=== PATIENT | male | born 1970 | race Caucasian/White ===

== ENCOUNTER 2017-04-29 08:28 | Observation (INO) | payer BC, OTHER ==
--- NOTE | 2017-04-29 08:44 | EDM.PDOC ---
ED HPI GENERAL MEDICAL PROBLEM - General Stated Complaint: LT SHOULDER Time Seen by Provider: 04/29/17 08:41 - History of Present Illness INITIAL COMMENTS - FREE TEXT/NARRATIVE: HISTORY AND PHYSICAL: History of present illness: Patient's 46-year-old white male presents with a concern of chest pain he notices when he woke from sleep he describes it as a dull midsternal chest pain with radiation of his left arm he denies associated palpitations shortness of breath nausea vomiting or diaphoresis he denies history of known coronary artery disease he denies tobacco or drugs Review of systems: As per history of present illness and below otherwise all systems reviewed and negative. Past medical history: As per history of present illness and as reviewed below otherwise noncontributory. Surgical history: As per history of present illness and as reviewed below otherwise noncontributory. Social history: No reported history of drug or alcohol abuse. Family history: As per history of present illness and as reviewed below otherwise noncontributory. Physical exam: HEENT: Atraumatic, normocephalic, pupils reactive, negative for conjunctival pallor or scleral icterus, mucous membranes moist, throat clear, neck supple, nontender, trachea midline. Lungs: Clear to auscultation, breath sounds equal bilaterally, chest nontender. Heart: S1S2, regular, negative for clicks, rubs, or JVD. Abdomen: Soft, nondistended, nontender. Negative for masses or hepatosplenomegaly. Negative for costovertebral tenderness. Pelvis: Stable nontender. Genitourinary: Deferred. Rectal: Deferred. Extremities: Atraumatic, negative for cords or calf pain. Neurovascular unremarkable. Neuro: Awake, alert, anxious, oriented. Cranial nerves II through XII unremarkable. Cerebellum unremarkable. Motor and sensory unremarkable throughout. Exam nonfocal. Diagnostics: CBC CMP troponin PT/INR chest x-ray EKG Therapeutics: IV O2 monitor aspirin 324 mg Impression: #1 chest pain Definitive disposition and diagnosis as appropriate pending reevaluation and review of above. - Related Data Allergies Allergy/AdvReac Type Severity Reaction Status Date / Time meperidine [From Demerol] Allergy Itching Verified 04/29/17 08:57 meperidine HCl [From Demerol] Allergy Cannot Verified 04/29/17 08:57 Remember Home Meds: Home Meds . [No Known Home Meds] 04/29/17 [History] Past Medical History Genitourinary History: Reports: Renal Calculus - Past Surgical History Musculoskeletal Surgical History: Reports: Shoulder Surgery Social & Family History - Family History Family Medical History: Noncontributory - Tobacco Use Smoking Status *Q: Never Smoker - Caffeine Use Caffeine Use: Reports: None - Recreational Drug Use Recreational Drug Use: No ED ROS GENERAL - Review of Systems Review Of Systems: ROS reveals no pertinent complaints other than HPI. ED EXAM, GENERAL - Physical Exam Exam: See Below (See dictation) Course - Vital Signs Last Recorded V/S: Last Vital Signs Temp 37.0 C 04/29/17 08:55 Pulse 62 04/29/17 08:55 Resp 20 04/29/17 08:55 BP 156/100 H 04/29/17 08:55 Pulse Ox 98 04/29/17 08:55 - Orders/Labs/Meds Orders: Active Orders 24 hr Category Date Time Status EKG Documentation Completion [RC] STAT Care 04/29/17 08:57 Active Chest 1V Frontal [CR] Stat Exams 04/29/17 08:57 Ordered D-DIMER QUANTITATIVE [COAG] Stat Lab 04/29/17 08:53 Received INR,PT,PROTHROMBIN TIME [COAG] Stat Lab 04/29/17 08:53 Received UA W/MICROSCOPIC [URIN] Stat Lab 04/29/17 08:57 Uncollected Sodium Chloride 0.9% [Saline Flush] Med 04/29/17 08:57 Active 10 ml FLUSH ASDIRECTED PRN Sodium Chloride 0.9% [Saline Flush] Med 04/29/17 08:57 Active 2.5 ml FLUSH ASDIRECTED PRN Saline Lock Insert [OM.PC] Stat Oth 04/29/17 08:57 Ordered Medication Orders Sodium Chloride (Saline Flush) 10 ml FLUSH ASDIRECTED PRN PRN Reason: Keep Vein Open Last Admin: 04/29/17 09:06 Dose: 10 ml Sodium Chloride (Saline Flush) 2.5 ml FLUSH ASDIRECTED PRN PRN Reason: Keep Vein Open Last Admin: 04/29/17 09:06 Dose: 2.5 ml Labs: Laboratory Tests 04/29/17 04/29/17 Range/Units 08:53 08:53 WBC 5.12 (4.0-11.0) K/uL RBC 5.16 (4.50-5.90) M/uL Hgb 16.6 (13.0-17.0) g/dL Hct 46.6 (38.0-50.0) % MCV 90.3 (80.0-98.0) fL MCH 32.2 H (27.0-32.0) pg MCHC 35.6 (31.0-37.0) g/dL RDW Std Deviation 42.5 (28.0-62.0) fl RDW Coeff of Hao 13 (11.0-15.0) % Plt Count 188 (150-400) K/uL MPV 10.70 (7.40-12.00) fL Neut % (Auto) 55.6 (48.0-80.0) % Lymph % (Auto) 30.9 (16.0-40.0) % [place] % (Auto) 10.0 (0.0-15.0) % Eos % (Auto) 2.9 (0.0-7.0) % Baso % (Auto) 0.6 (0.0-1.5) % Neut # (Auto) 2.9 (1.4-5.7) K/uL Lymph # (Auto) 1.6 (0.6-2.4) K/uL [place] # (Auto) 0.5 (0.0-0.8) K/uL Eos # (Auto) 0.2 (0.0-0.7) K/uL Baso # (Auto) 0.0 (0.0-0.1) K/uL Nucleated RBC % 0.0 /100WBC Nucleated RBCs # 0 K/uL Sodium 140 (136-146) mmol/L Potassium 4.3 (3.5-5.1) mmol/L Chloride 105 (98-110) mmol/L Carbon Dioxide 26 (21-31) mmol/L BUN 16 (6.0-23.0) mg/dL Creatinine 1.0 (0.6-1.5) mg/dL Est Cr Clr Drug Dosing 97.26 mL/min Estimated GFR (MDRD) > 60.0 ml/min Glucose 107 (60-110) mg/dL Calcium 9.7 (8.8-10.8) mg/dL Total Bilirubin 0.6 (0.1-1.5) mg/dL AST 37 (5-40) IU/L ALT 52 (8-54) IU/L Alkaline Phosphatase 69 (40-150) Troponin I < 0.10 (0.0-0.29) NG/ML Total Protein 7.8 (6.0-8.0) g/dL Albumin 4.2 (3.5-5.0) g/dL Globulin 3.6 H (2.0-3.5) g/dL Albumin/Globulin Ratio 1.2 L (1.3-2.8) Amylase 45 (10-90) U/L Lipase 21 (7-80) U/L Meds: Medications Generic Name Dose Route Start Last Admin Trade Name Freq PRN Reason Stop Dose Admin Sodium Chloride 10 ml 04/29/17 08:57 04/29/17 09:06 Saline Flush FLUSH 10 ml ASDIRECTED PRN Administration Keep Vein Open Sodium Chloride 2.5 ml 04/29/17 08:57 04/29/17 09:06 Saline Flush FLUSH 2.5 ml ASDIRECTED PRN Administration Keep Vein Open Discontinued Medications Generic Name Dose Route Start Last Admin Trade Name Freq PRN Reason Stop Dose Admin Aspirin 324 mg 04/29/17 08:57 04/29/17 09:06 Aspirin PO 04/29/17 08:58 324 mg ONETIME ONE Administration Departure - Departure Time of Disposition: 09:36 Disposition: Refer to Observation Condition: Good Clinical Impression: Chest pain - Discharge Information Referrals: PCP,None [Primary Care Provider] - - My Orders Last 24 Hours: My Active Orders 04/29/17 08:53 D-DIMER QUANTITATIVE [COAG] Stat INR,PT,PROTHROMBIN TIME [COAG] Stat 04/29/17 08:57 EKG Documentation Completion [RC] STAT Chest 1V Frontal [CR] Stat UA W/MICROSCOPIC [URIN] Stat Sodium Chloride 0.9% [Saline Flush] 10 ml FLUSH ASDIRECTED PRN Sodium Chloride 0.9% [Saline Flush] 2.5 ml FLUSH ASDIRECTED PRN Saline Lock Insert [OM.PC] Stat - Assessment/Plan Last 24 Hours: My Active Orders 04/29/17 08:53 D-DIMER QUANTITATIVE [COAG] Stat INR,PT,PROTHROMBIN TIME [COAG] Stat 04/29/17 08:57 EKG Documentation Completion [RC] STAT Chest 1V Frontal [CR] Stat UA W/MICROSCOPIC [URIN] Stat Sodium Chloride 0.9% [Saline Flush] 10 ml FLUSH ASDIRECTED PRN Sodium Chloride 0.9% [Saline Flush] 2.5 ml FLUSH ASDIRECTED PRN Saline Lock Insert [OM.PC] Stat
[2017-04-29] MEDS ORDERED: Sodium Chloride 0.9% 2.5 ML Syringe FLUSH PRN (08:57)
[2017-04-29] MEDS ORDERED: Aspirin 81 MG Tab.Chew PO ONE (08:57)
[2017-04-29] MEDS ORDERED: Sodium Chloride 0.9% 10 ML Syringe FLUSH PRN (08:57)
[2017-04-29 09:22] LABS: CHLORIDE,CL 105 mmol/L (98-110); SODIUM,NA 140 mmol/L (136-146)
[2017-04-29] MEDS ORDERED: Ondansetron 4 MG Tab.DIS PO PRN (11:49)
[2017-04-29] MEDS ORDERED: Acetaminophen 325 MG Tab PO PRN (11:49)
[2017-04-29] MEDS ORDERED: Enoxaparin 40 MG/0.4 ML Syringe SUBCUT SCH (12:00)
--- NOTE | 2017-04-29 12:02 | PCM.HP ---
H&P History of Present Illness - General Date of Service: 04/29/17 Admit Problem/Dx: Admission Diagnosis/Problem Admission Diagnosis/Problem Chest pain Source of Information: Patient History Limitations: Reports: No Limitations - History of Present Illness Initial Comments - Free Text/Narative: 46-year-old male that is being admitted with chest pain and for ACS rule out. Patient presented to the emergency room this morning after waking up with a dull , midsternal chest pain that radiated to the left arm. The pain was present for a few hours and upon presenting to the emergency room had resolved. He did not require any nitroglycerin or morphine in the emergency room for pain relief. He was given a dose of aspirin. Patient has no previous cardiac history. No family history of cardiac disease. He did not experience any palpitations, shortness of breath, nausea, vomiting, diaphoresis with the onset of this chest pain. There has been no peripheral edema. Patient does not currently take any medications. No history of hypertension or diabetes or hypercholesterolemia. Patient does not use tobacco. ER course: CBC, d-dimer, amylase, lipase, CMP, urinalysis were all unremarkable. Initial troponin was negative. Patient was hypertensive with a blood pressure of 156/ 100. Blood pressure has normalized to 125/92. Patient was given an aspirin in the ER. EKG was unremarkable. Left Chest Pain Score (Numeric/FACES): 4 - Related Data Allergies/Adverse Reactions: Allergies Allergy/AdvReac Type Severity Reaction Status Date / Time meperidine [From Demerol] Allergy Itching Verified 04/29/17 08:57 meperidine HCl [From Demerol] Allergy Cannot Verified 04/29/17 08:57 Remember Home Medications: Home Meds . [No Known Home Meds] 04/29/17 [History] Past Medical History - Past Health History Medical/Surgical History: Denies Medical/Surgical History Respiratory History: Reports: Other (See Below) Other Respiratory History: hx of pneumonia Genitourinary History: Reports: Renal Calculus - Past Surgical History Musculoskeletal Surgical History: Reports: Shoulder Surgery Social & Family History - Family History Family Medical History: Noncontributory - Tobacco Use Smoking Status *Q: Former Smoker Used Tobacco, but Quit: No - Caffeine Use Caffeine Use: Reports: Coffee - Recreational Drug Use Recreational Drug Use: Yes H&P Review of Systems - Review of Systems: Review Of Systems: See Below General: Reports: No Symptoms HEENT: Reports: No Symptoms Pulmonary: Reports: No Symptoms Cardiovascular: Reports: Chest Pain Gastrointestinal: Reports: No Symptoms Genitourinary: Reports: No Symptoms Musculoskeletal: Reports: No Symptoms Skin: Reports: No Symptoms Psychiatric: Reports: No Symptoms Neurological: Reports: No Symptoms Hematologic/Lymphatic: Reports: No Symptoms Immunologic: Reports: No Symptoms Exam - Exam Exam: See Below - Vital Signs Vital Signs: Last Vital Signs Temp 97.1 F 04/29/17 10:50 Pulse 51 L 04/29/17 10:50 Resp 18 04/29/17 10:50 BP 125/92 H 04/29/17 10:50 Pulse Ox 95 04/29/17 10:50 Weight: 221 lb 6.4 oz - Exam General: Alert, Oriented, Cooperative HEENT: Conjunctiva Clear, Hearing Intact, Mucosa Moist & [place], Nares Patent, Normal Nasal Septum Neck: Supple, Trachea Midline, 2 Lungs: Clear to Auscultation, Normal Respiratory Effort Cardiovascular: Regular Rate, Regular Rhythm GI/Abdominal Exam: Normal Bowel Sounds, Soft, Non-Tender, No Organomegaly, No Distention, No Abnormal Bruit, No Mass Extremities: Normal Inspection, Normal Range of Motion, Non-Tender, No Pedal Edema, Normal Capillary Refill Peripheral Pulses: 2+: Radial (L), Radial (R), Posterior Tibial (L), Posterior Tibial (R) Skin: Warm, Dry, Intact Neuro Extensive - Mental Status: Alert, Oriented x3, Normal Mood/Affect, Normal Cognition Psychiatric: Alert, Normal Affect, Normal Mood - Patient Data Lab Results Last 24 hrs: Laboratory Results - last 24 hr 04/29/17 Range/Units 09:45 Urine Color YELLOW Urine Appearance CLEAR Urine pH 6.0 (5.0-8.0) Ur Specific [place] <= 1.005 (1.001-1.035) Urine Protein NEGATIVE (NEGATIVE) mg/dL Urine Glucose (UA) NEGATIVE (NEGATIVE) mg/dL Urine Ketones NEGATIVE (NEGATIVE) mg/dL Urine Occult Blood NEGATIVE (NEGATIVE) Urine Nitrite NEGATIVE (NEGATIVE) Urine Bilirubin NEGATIVE (NEGATIVE) Urine Urobilinogen 0.2 (<2.0) EU/dL Ur Leukocyte Esterase NEGATIVE (NEGATIVE) Urine RBC 0-1 (0-2/HPF) Urine WBC 0-1 (0-5/HPF) Ur Epithelial Cells RARE (NONE-FEW) Urine Bacteria RARE (NEGATIVE) Result Diagrams: 04/29/17 08:53 04/29/17 08:53 *Q Meaningful Use (ADM) - VTE *Q VTE Criteria *Q: - Stroke *Q Stroke Criteria *Q: - AMI *Q AMI Criteria *Q: - Problem List (1) Chest pain SNOMED Code(s): 28791313 ICD Code: R07.9 - CHEST PAIN, UNSPECIFIED Status: Acute Current Visit: Yes Problem List Initiated/Reviewed/Updated: Yes Orders Last 24hrs: Active Orders 24 hr Category Date Time Status Antiembolic Devices [RC] PER UNIT ROUTINE Care 04/29/17 11:52 Ordered Cardiac Monitoring [RC] CONTINUOUS Care 04/29/17 11:51 Ordered Height and Weight [RC] DAILY Care 04/29/17 11:49 Ordered Intake and Output [RC] QSHIFT Care 04/29/17 11:51 Ordered Notify Provider Vital Signs [RC] ASDIRECTED Care 04/29/17 11:51 Ordered Oxygen Therapy [RC] PRN Care 04/29/17 11:50 Ordered Pulse Oximetry [RC] PRN Care 04/29/17 11:51 Ordered Telemetry Monitoring [Cardiac Monitoring] [RC] . Care 04/29/17 11:53 Ordered DIRECTED Up ad Slime [RC] ASDIRECTED Care 04/29/17 11:49 Ordered VTE/DVT Education [RC] PER UNIT ROUTINE Care 04/29/17 11:50 Ordered Vital Signs [RC] Q4H Care 04/29/17 11:50 Ordered GLYCOSYLATED HEMOGLOBIN,HGBA1C [CHEM] Routine Lab 04/29/17 11:53 Ordered LIPID PANEL [CHEM] Routine Lab 04/29/17 11:53 Ordered TROPONIN I [CHEM] Q6H Lab 04/29/17 15:00 Ordered TROPONIN I [CHEM] Q6H Lab 04/29/17 21:00 Ordered Acetaminophen [Tylenol] Med 04/29/17 11:49 Ordered 650 mg PO Q4H PRN Enoxaparin [Lovenox] Med 04/29/17 12:00 Ordered 40 mg SUBCUT DAILY Ondansetron [Zofran ODT] Med 04/29/17 11:49 Ordered 4 mg PO Q4H PRN Sequential Compression Device [OM.PC] Per Unit Routine Oth 04/29/17 11:52 Ordered Resuscitation Status Routine Resus Stat 04/29/17 11:49 Ordered Medication Orders Acetaminophen (Tylenol) 650 mg PO Q4H PRN PRN Reason: Pain (Mild 1-3)/fever Enoxaparin Sodium (Lovenox) 40 mg SUBCUT DAILY ELIAS Ondansetron HCl (Zofran Odt) 4 mg PO Q4H PRN PRN Reason: nausea, able to take PO Sodium Chloride (Saline Flush) 10 ml FLUSH ASDIRECTED PRN PRN Reason: Keep Vein Open Last Admin: 04/29/17 09:06 Dose: 10 ml Sodium Chloride (Saline Flush) 2.5 ml FLUSH ASDIRECTED PRN PRN Reason: Keep Vein Open Last Admin: 04/29/17 09:06 Dose: 2.5 ml Assessment/Plan Comment:: 46-year-old male with chest pain being admitted for ACS rule out #1. Chest pain: -Initial troponin was negative. Trend troponins x2 -Lipid panel and A1c are pending. -Chest x-ray is ordered and pending -Patient will be placed on telemetry. Patient does not want to stay overnight. If his 3 sets of troponins are negative , he will be discharged tonight. He will follow-up with Dr. Leidy Corea and be set up for an outpatient stress test.
[2017-04-29] MEDS ORDERED: Rosuvastatin 10 MG Tab PO SCH (14:15)
[2017-04-29 16:15] VITALS: BP 122/74
--- NOTE | 2017-04-30 08:26 | CR ---
EXAMINATION: Portable chest radiograph. HISTORY: Chest pain. FINDINGS: The trachea is midline. The cardiomediastinal silhouette is within normal limits. No pulmonary infilt rates, effusions or pneumothorax. Osseous structures appear unremarkable. IMPRESSION: No acute cardiopulmonary process.
== END 2017-04-29 21:45 | disposition home or self-care (01) ==
LOC: MW.ED 08:28 → MW.MS 09:36 → UNDOADMOB 09:48
PROVIDERS: ADMIT Internal Medicine; ATTEND Internal Medicine
DX: R07.9 Chest pain, unspecified (principal); E78.1 Pure hyperglyceridemia; Z87.01 Personal history of pneumonia (recurrent); Z87.442 Personal history of urinary calculi; Z87.891 Personal history of nicotine dependence; Z88.5 Allergy status to narcotic agent; Z98.890 Other specified postprocedural states
CPT/HCPCS: 36415; 71010; 80053; 80061; 81001; 82150; 83036; 83690; 84484; 85025; 85379; 85610; 93005; 96372; 99285; A9270; G0378; J1650; 99283

== ENCOUNTER 2023-05-31 03:11 | Emergency (ER) | payer BC ==
[2023-05-31] MEDS ORDERED: Sodium Chloride 0.9% 10 ML Syringe FLUSH PRN (03:17)
[2023-05-31] MEDS ORDERED: Naloxone 0.4 MG/ML SDV IVPUSH PRN (03:17)
[2023-05-31] MEDS ORDERED: Ondansetron 4 MG/2 ML SDV IVPUSH ONE (03:17)
[2023-05-31] MEDS ORDERED: Morphine 4 MG/ML Syringe IVPUSH ONE (03:17)
[2023-05-31] MEDS ORDERED: Sodium Chloride 0.9% 2.5 ML Syringe FLUSH PRN (03:17)
[2023-05-31] MEDS ORDERED: Sodium Chloride 0.9% 1,000 ML IV ONE (03:17)
[2023-05-31 03:30] LABS: BASOPHILS ABSOLUTE AUTO 0.05 K/uL (0.00-0.20); BASOPHILS PERCENT AUTO 0.5 % (0.0-1.0); EOSINOPHILS ABSOLUTE AUTO 0.22 K/uL (0.00-0.45); EOSINOPHILS PERCENT AUTO 2.1 % (0.0-6.0); HEMATOCRIT 46.8 % (42.0-52.0); HEMOGLOBIN 16.9 g/dL (14.0-18.0); IMMATURE GRAN ABSOLUTE AUTO 0.04 K/uL (0.00-0.05); IMMATURE GRAN PERCENT AUTO 0.4 % (0.0-0.4); LYMPHOCYTES ABSOLUTE AUTO 1.67 K/uL (1.00-4.80); LYMPHOCYTES PERCENT AUTO 16.2 % (24.0-44.0); MEAN CORPUSCULAR HEMOGLOBIN 32.1 pg (28.0-32.0); MEAN CORPUSCULAR HGB CONC 36.1 g/dL (32.0-36.0); MEAN PLATELET VOLUME 9.5 fL (9.4-12.4); MONOCYTES ABSOLUTE AUTO 0.98 K/uL (0.00-0.80); MONOCYTES PERCENT AUTO 9.5 % (0.0-8.0); NEUTROPHILS ABSOLUTE AUTO 7.33 K/uL (1.80-7.70); NEUTROPHILS PERCENT AUTO 71.3 % (41.0-71.0); PLATELET COUNT,PLT 233 K/uL (150-400); RED BLOOD CELL COUNT 5.26 M/uL (4.52-5.90); WHITE BLOOD CELL COUNT,WBC 10.29 K/uL (3.9-11.3)
[2023-05-31 03:39] LABS: APPEARANCE,URINE CLEAR; BILIRUBIN,URINE NEGATIVE (NEGATIVE); COLOR,URINE YELLOW; GLUCOSE,URINE NEGATIVE (NEGATIVE); KETONES,URINE NEGATIVE (NEGATIVE); LEUKOCYTE ESTERASE,URINE NEGATIVE (NEGATIVE); NITRITE,URINE NEGATIVE (NEGATIVE); OCCULT BLOOD,URINE NEGATIVE (NEGATIVE); PROTEIN,URINE NEGATIVE (NEGATIVE); UROBILINOGEN,URINE 0.2 EU/dL (<2.0)
[2023-05-31 03:52] LABS: A/G RATIO 0.9 (0.9-1.6); ALBUMIN 3.7 g/dL (3.4-5.0); BILIRUBIN TOTAL 0.9 mg/dL (0.2-1.0); CREATININE 1.6 mg/dL (0.8-1.3); EST CRCL DRUG DOSING (CG) 55.13 mL/min; POTASSIUM,K 4.1 mmol/L (3.5-5.1); PROTEIN TOTAL,TP 7.6 g/dL (6.4-8.2)
[2023-05-31] MEDS ORDERED: Iopamidol 755 MG/ML 500 ML Multipack Bottle IVPUSH ONE (03:56)
[2023-05-31] MEDS ORDERED: Ketorolac 30 MG/ML SDV IVPUSH ONE (03:57)
[2023-05-31 05:11] VITALS: BP 144/81; PULSE 63
== END 2023-05-31 05:11 | disposition home or self-care (01) ==
LOC: MW.ED 03:11
DX: N13.2 Hydronephrosis with renal and ureteral calculous obstruction (principal); R91.1 Solitary pulmonary nodule; Z88.5 Allergy status to narcotic agent
CPT/HCPCS: 36415; 74177; 80053; 81003; 83690; 85025; 96361; 96374; 96375; 99284; J1885; J2270; J2405; J7030; Q9967

== ENCOUNTER 2023-09-17 18:58 | Emergency (ER) | payer BC ==
[2023-09-17 19:21] LABS: BASOPHILS ABSOLUTE AUTO 0.05 K/uL (0.00-0.20); BASOPHILS PERCENT AUTO 0.8 % (0.0-1.0); EOSINOPHILS PERCENT AUTO 3.1 % (0.0-6.0); HEMATOCRIT 48.7 % (42.0-52.0); HEMOGLOBIN 17.5 g/dL (14.0-18.0); IMMATURE GRAN ABSOLUTE AUTO 0.02 K/uL (0.00-0.05); IMMATURE GRAN PERCENT AUTO 0.3 % (0.0-0.4); LYMPHOCYTES ABSOLUTE AUTO 1.85 K/uL (1.00-4.80); LYMPHOCYTES PERCENT AUTO 28.9 % (24.0-44.0); MEAN CORPUSCULAR HEMOGLOBIN 32.1 pg (28.0-32.0); MEAN CORPUSCULAR HGB CONC 35.9 g/dL (32.0-36.0); MEAN CORPUSCULAR VOLUME 89.2 fL (83.0-99.0); MEAN PLATELET VOLUME 9.9 fL (9.4-12.4); MONOCYTES ABSOLUTE AUTO 0.55 K/uL (0.00-0.80); MONOCYTES PERCENT AUTO 8.6 % (0.0-8.0); NEUTROPHILS ABSOLUTE AUTO 3.74 K/uL (1.80-7.70); NEUTROPHILS PERCENT AUTO 58.3 % (41.0-71.0); PLATELET COUNT,PLT 250 K/uL (150-400); RED BLOOD CELL COUNT 5.46 M/uL (4.52-5.90); WHITE BLOOD CELL COUNT,WBC 6.41 K/uL (3.9-11.3)
[2023-09-17] MEDS: Aspirin 81 MG Tab.Chew PO STA ×2 (19:38→19:40)
[2023-09-17 19:53] LABS: BILIRUBIN TOTAL 0.5 mg/dL (0.2-1.0); CALCIUM 9.3 mg/dL (8.5-10.1); CREATININE 1.2 mg/dL (0.8-1.3); EST CRCL DRUG DOSING (CG) 72.66 mL/min; POTASSIUM,K 3.8 mmol/L (3.5-5.1); PROTEIN TOTAL,TP 8.1 g/dL (6.4-8.2)
[2023-09-17 19:57] LABS: MAGNESIUM 2.1 mg/dL (1.8-2.4)
[2023-09-17 20:04] LABS: INR 0.98 (0.86-1.11); PTT,PARTIAL THROMBOPLSTIN TIME 28.9 SEC (23.9-30.7)
[2023-09-17] MEDS: Iopamidol 755 MG/ML 500 ML Multipack Bottle IVPUSH ONE (20:37)
[2023-09-17 21:01] LABS: APPEARANCE,URINE CLEAR; BILIRUBIN,URINE NEGATIVE (NEGATIVE); COLOR,URINE YELLOW; GLUCOSE,URINE NEGATIVE (NEGATIVE); KETONES,URINE NEGATIVE (NEGATIVE); LEUKOCYTE ESTERASE,URINE NEGATIVE (NEGATIVE); NITRITE,URINE NEGATIVE (NEGATIVE); OCCULT BLOOD,URINE NEGATIVE (NEGATIVE); PH,URINE 6.5 (5.0-8.0); PROTEIN,URINE NEGATIVE (NEGATIVE); UROBILINOGEN,URINE 0.2 EU/dL (<2.0)
[2023-09-17] MEDS: Sodium Chloride 0.9% 10 ML Syringe FLUSH PRN (21:35)
[2023-09-17] MEDS: Sodium Chloride 0.9% 2.5 ML Syringe FLUSH PRN (21:35)
[2023-09-18 02:33] VITALS: BP 135/69; PULSE 83
== END 2023-09-17 23:10 | disposition left against medical advice (07) ==
LOC: MW.ED 18:58
DX: R20.2 Paresthesia of skin (principal); R79.89 Other specified abnormal findings of blood chemistry; I10 Essential (primary) hypertension; Z53.29 Procedure and treatment not carried out because of patient's decision for other reasons; Z79.899 Other long term (current) drug therapy; Z75.8 Other problems related to medical facilities and other health care
CPT/HCPCS: 36415; 70450; 70496; 70498; 71046; 80053; 81003; 83690; 83735; 84484; 85025; 85610; 85730; 93005; 99284; A9270; J3490; Q9967; 93010

== ENCOUNTER 2025-01-22 10:21 | Emergency (ER) | payer BC ==
[2025-01-22] MEDS: Ketorolac 30 MG/ML SDV IM ONE (10:48)
[2025-01-22] MEDS: Orphenadrine 60 MG/2 ML Inj IM ONE (10:49)
[2025-01-22 10:53] VITALS: BP 162/93; PULSE 69
== END 2025-01-22 11:47 | disposition home or self-care (01) ==
LOC: MW.ED 10:21
DX: M54.12 Radiculopathy, cervical region (principal); I10 Essential (primary) hypertension; Z75.3 Unavailability and inaccessibility of health-care facilities; Z88.8 Allergy status to other drugs, medicaments and biological substances; Z79.899 Other long term (current) drug therapy
CPT/HCPCS: 96372; 99283; A9270; J1100; J1885; J2360; 99284

== ENCOUNTER 2025-01-31 00:18 | Emergency (ER) | payer BC ==
[2025-01-31] MEDS: Acetaminophen/HYDROcodone 325-10 MG Tab PO ONE (01:06)
[2025-01-31] MEDS: Ketorolac 60 MG/2 ML SDV IM ONE (01:08)
[2025-01-31] MEDS: Orphenadrine 60 MG/2 ML Inj IM ONE (01:09)
[2025-01-31 01:26] VITALS: BP 160/92; PULSE 63
== END 2025-01-31 01:25 | disposition home or self-care (01) ==
LOC: MW.ED 00:18
DX: M75.22 Bicipital tendinitis, left shoulder (principal); M62.838 Other muscle spasm; I10 Essential (primary) hypertension; Z88.8 Allergy status to other drugs, medicaments and biological substances; Z79.899 Other long term (current) drug therapy
CPT/HCPCS: 96372; 99283; A9270; J1885; J2360; 99284